=== PATIENT | male | born 1970 | race Hispanic/Latino ===

== ENCOUNTER 2017-09-18 10:15 | Outpatient (CLI) | payer MEDICARE ==
--- NOTE | 2017-09-19 07:52 | Nuclear Medicine Report ---
BONE SCAN: History: Malignant neoplasm of right testes. Technique: Anterior and posterior whole-body imaging was performed 3 hours after injection of 25 mCi of technetium 99m MDP. Comparison: No previous bone scan. Correlation is made with a CT chest abdomen and pelvis performed 08/20/17. After injection of isotope, gamma camera imaging of the bony system was done. There is a normal uptake of isotope throughout the bony structures without areas of significantly increased or decreased uptake. Mild degenerative uptake in the shoulders is noted. Photopenic defect at the right hip replacement site is noted. Normal uptake in the urinary system is seen. IMPRESSION: No evidence for metastatic disease to the bones.
== END 2017-09-18 10:16 | disposition home or self-care (01) ==
LOC: NM 10:15
PROVIDERS: ATTEND Internal Medicine Hematology & Oncology
DX: C62.11 Malignant neoplasm of descended right testis (principal); Z96.641 Presence of right artificial hip joint
CPT/HCPCS: 78306; A9503

== ENCOUNTER 2018-02-02 08:50 | Outpatient (CLI) | payer MEDICARE ==
[2018-02-02 09:45] LABS: Blood Urea Nitrogen 6 mg/dL (9-20)
--- NOTE | 2018-02-02 14:28 | Cat Scan Report ---
CT CHEST WITH CONTRAST: HISTORY: Malignant neoplasm of descended right testis. COMPARISON: 08/20/17. TECHNIQUE: Helical CT in 1.25mm intervals following IV contrast. Sagittal and coronal reformatted images. FINDINGS: Thyroid gland: Normal. Tracheobronchial tree: Normal. Esophagus: Normal. Heart: Normal. Pericardium: Normal. Mediastinum: Normal. Lung Shepherd: Normal. Pleural Spaces: Normal. Musculoskeletal: Normal. Mild bilateral gynecomastia is noted, left greater than right. IMPRESSION: Unremarkable CT chest with contrast. No evidence for metastatic disease to the chest.
--- NOTE | 2018-02-02 14:31 | Cat Scan Report ---
CT ABDOMEN PELVIS WITH CONTRAST: HISTORY: Malignant neoplasm of the descended right testis. COMPARISON: 08/20/17. TECHNIQUE: Helical CT in 1.25mm intervals following IV contrast. Sagittal and coronal reconstructions. FINDINGS: Liver: Moderate diffuse fatty infiltration of the liver is unchanged. No focal liver mass, enlargement or surface nodularity. Biliary system: Normal. Pancreas: Normal. Spleen: Normal. Kidneys/ureters/bladder: Normal. Adrenal glands: Normal. Aorta: Normal. Intestines: Unremarkable given no oral contrast was administered. Appendix: Normal. Ascites: None. Adenopathy: None. Musculoskeletal: Normal. Right hip replacement is noted and intact. IMPRESSION: No evidence for metastatic disease to the abdomen or pelvis. Hepatic steatosis. No change since 08/20/17.
--- NOTE | 2018-02-03 08:05 | Nuclear Medicine Report ---
BONE SCAN: History: Malignant neoplasm of the descending and right testis. Comparison: Bone scan dated 09/18/17. CT chest abdomen and pelvis performed the same day. After injection of isotope, gamma camera imaging of the bony system was done. There is a normal uptake of isotope throughout the bony structures without areas of significantly increased or decreased uptake. Photopenic area in the right humeral head neck region is noted and secondary to right hip replacement. Normal uptake in the urinary system is seen. There is moderate urinary contamination in the perineum. IMPRESSION: Negative bone scan.
== END 2018-02-02 08:51 | disposition home or self-care (01) ==
LOC: NM 08:50
PROVIDERS: ATTEND Internal Medicine Hematology & Oncology
DX: C62.11 Malignant neoplasm of descended right testis (principal); K76.0 Fatty (change of) liver, not elsewhere classified; N62 Hypertrophy of breast; Z96.641 Presence of right artificial hip joint
CPT/HCPCS: 36415; 71260; 74177; 78306; 82565; 84520; A9503; Q9967

== ENCOUNTER 2018-04-16 10:00 | Inpatient (IN) | payer MEDICARE ==
[2018-04-16 10:40] LABS: Basophils # (Auto) 0.1 K/mm3 (0.0-0.1); Basophils % (Auto) 0.9 % (0.0-1.8); Eosinophils # (Auto) 0.1 K/mm3 (0.0-0.4); Eosinophils % (Auto) 0.7 % (0.0-4.3); Lymphocytes # (Auto) 1.6 K/mm3 (1.2-5.4); Lymphocytes % (Auto) 17.5 % (13.4-35.0); Mean Corpuscular HGB Conc 35 % (32-34); Mean Corpuscular Hemoglobin 36 pg (28-32); Mean Corpuscular Volume 102 fl (84-94); Monocytes % (Auto) 11.7 % (0.0-7.3); Platelet Count 186 K/mm3 (140-440); Red Cell Distribution Width 14.1 % (13.2-15.2)
[2018-04-16 10:52] LABS: INR 0.93 (0.87-1.13)
[2018-04-16 10:53] LABS: Partial Thromboplastin Time 23.8 Sec. (24.2-36.6)
[2018-04-16 10:57] LABS: Alanine Aminotransferase 63 units/L (7-56); BUN/Creatinine Ratio 11; Blood Urea Nitrogen 10 mg/dL (9-20); Calcium 9.1 mg/dL (8.4-10.2); Hemolysis Index 19
--- NOTE | 2018-04-16 12:57 | Anesthesia Consultation ---
Anesthesia Consult and Med Hx Date of service: 04/16/18 - Airway Anesthetic Teeth Evaluation: Good ROM Head & Neck: Adequate Mental/Hyoid Distance: Adequate - Pulmonary Exam CTA: Yes - Cardiac Exam Cardiac Exam: RRR - Pre-Operative Health Status ASA Pre-Surgery Classification: ASA2 Proposed Anesthetic Plan: General - Pulmonary Hx Smoking: Yes (SMOKLESS TOBACCO (DIPS)) Hx Sleep Apnea: No (DEANDRE PRE SCREEN LOW RISK) - Cardiovascular System Hx Hypertension: No - Central Nervous System Hx Back Pain: Yes (NECK AND BACK PAIN) - Hematic Hx Anemia: Yes - Other Systems Hx Cancer: Yes (MULTIPLE ROUNDS OF RADIATION FOR RECURRENT CA)
[2018-04-23] MEDS ORDERED: NEURONTIN PO NR (06:00)
[2018-04-23] MEDS ORDERED: VERSED IV NR (06:00)
[2018-04-23] MEDS ORDERED: REGLAN IV NR (06:00)
[2018-04-23] MEDS ORDERED: PEPCID IV NR (06:00)
[2018-04-23] MEDS ORDERED: NACL BACTERIOSTATIC INFILTRATI ONE (06:41)
[2018-04-23] MEDS ORDERED: XYLOCAINE MPF 2% ONE (06:46)
[2018-04-23] MEDS ORDERED: DECADRON ONE ×2 (06:46→07:22)
[2018-04-23] MEDS ORDERED: DIPRIVAN 10 MG/ML IV ONE (06:46)
[2018-04-23] MEDS ORDERED: DILAUDID ONE (06:49)
[2018-04-23] MEDS ORDERED: ZEMURON IV ONE (06:49)
[2018-04-23] MEDS ORDERED: ZOFRAN ONE (06:50)
[2018-04-23] MEDS: LACTATED RINGERS 1,000 ML IV SCH (07:10)
[2018-04-23] MEDS ORDERED: SUBLIMAZE ONE (07:18)
--- NOTE | 2018-04-23 08:03 | Anesthesia Day of Surgery ---
Anesthesia Day of Surgery - Day of Surgery Patient Examined: Yes Patient H&P Reviewed: Yes Patient is NPO: Yes
[2018-04-23] MEDS ORDERED: NACL 0.9% 1000 ML 1,000 ML ONE (08:53)
[2018-04-23] MEDS ORDERED: NEO SYNEPHRINE ONE (08:58)
[2018-04-23] MEDS ORDERED: DILAUDID IV PRN ×2 (09:00→20:17)
[2018-04-23] MEDS ORDERED: ANCEF/STERILE WATER 2 GM/20 ML IV NR (09:00)
[2018-04-23] MEDS ORDERED: NACL 0.9% 100 ML ONE (10:25)
[2018-04-23] MEDS ORDERED: TRANEXAMIC ACID ONE (10:25)
[2018-04-23] MEDS ORDERED: TRANEXAMIC ACID IV ONE (10:54)
[2018-04-23] MEDS ORDERED: MORPHINE IV PRN (13:19)
[2018-04-23] MEDS ORDERED: SODIUM CHLORIDE FLUSH SYRINGE 10 ML IV SCH (14:00)
[2018-04-23] MEDS ORDERED: LACTATED RINGERS 1,000 ML IV SCH (14:00)
--- NOTE | 2018-04-23 14:32 | Post Anesthesia Evaluation ---
- Post Anesthesia Evaluation Patient Participated: Yes Airway Patent: Yes Stable Respiratory Function: Yes Nausea/Vomiting: No Temp > 96.8F: Yes Pain Manageable: Yes Adequeate Hydration: Yes Anesthesia Complications: No Block Receding Appropriately: No Patient on Ventilator: No
[2018-04-23] MEDS: ANCEF/NS 1 GM/50 ML 1 GM/50 ML BAG IV SCH (16:39)
[2018-04-23] MEDS: DILAUDID IV PRN ×2 (18:29→20:59)
--- NOTE | 2018-04-23 19:25 | Procedure Note ---
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 A timeout procedure was done to identify the patient and the correct operative site. Using a deltopectoral incision starting at the the inferior border of the clavicle this was then taken down over the coracoid process and the proximal aspect of the shoulder incision was then taken down through skin subcutaneous care was taken to identify the cephalic vein this was identified and was retracted and a medial direction next using the coracoid process as our landmark the conjoined tendon was identified the deltoid muscle was retracted and a lateral direction to expose more of the humeral head and osteotomy was performed on the coracoid process and the conjoined tendon was then released and placed in the medial position with the arm and maximum external rotation an incision was made onto the subscapularis tendon this tendon was tagged for later repair. The humeral head was then shifted laterally to expose the articular surface the patient was noted to have a large area of flattening and arthritic changes noted along the articular surface. A 4 mm start her reamer was used to enter the medullary canal this was followed by sequential remaining up to a 11 mm diameter The intramedullary resection guide was applied with the version james oriented and lined with the forearm using a oscillating saw the humeral head was resected and the femoral stem was inserted. The proximal humerus was retracted although the operative field exposing the glenoid surface patient was noted to have mild to moderate changes the labrum was debrided and the patient guide was placed over the glenoid a medium size or was chosen A3.2 threaded Steinmann. Was placed through the size or and into the glenoid this was followed by reaming the articular surface preparing the central post as well as the peripheral pegs. Using bone cement the peripheral thank holes were clogged with cement in the central without the glenoid component was then inserted and was held in place until the cement hardened. Attention was then turned to the humeral head component measuring the bone resected from the humeral articular surface a 42 x 18 head was selected and was placed on to the humeral stem Layo trial and was reduced and was taken through a range of motion and was found to be stable there was no impingement or stuffing of the glenohumeral jointLeah will O next the trial head was removed and the final component inserted and locked into position again the shoulder was reduced taken through a range of motion and was found to be stable next the wall scope was irrigated the subscapularis tendon was repaired using #2 fiber wire this was followed by reattachment of the coracoid process with a 3.5 cortical screw this was then followed by closure of the deltoid fascia subcutaneous and skin routine postoperative dressings were applied. The patient was extubated and was taken to postanesthesia recovery Surgeon: SHAKEEL ARIAS Veterinary Technologist: ALOK BERG Estimated blood loss: 50-100ml Pathology: none Condition: stable Disposition: PACU
[2018-04-23] MEDS ORDERED: PERCOCET 5/325 PO PRN (20:21)
[2018-04-24] MEDS: ANCEF/NS 1 GM/50 ML 1 GM/50 ML BAG IV SCH (01:35)
[2018-04-24] MEDS: DILAUDID IV PRN ×3 (01:35→10:40)
[2018-04-24] MEDS: LACTATED RINGERS 1,000 ML IV SCH (05:06)
--- NOTE | 2018-04-24 14:59 | Progress Note ---
Assessment and Plan Status post left total shoulder replacement doing well we'll discharge to home today with a follow-up appointment in the office in 10 days Subjective Date of service: 04/24/18 Interval history: Doing well no complaints noted Objective Vital signs: Vital Signs - 12hr 04/24/18 04/24/18 04/24/18 04:34 05:57 06:27 Temperature 98.0 F Pulse Rate 81 Respiratory 20 17 17 Rate Blood Pressure 127/74 O2 Sat by Pulse 93 Oximetry Narrative Exam: As the left shoulder. Dressings were changed and inspected no drainage per se no redness or erythema noted - Labs CBC & BMP: 04/16/18 10:10 04/16/18 10:10
[2018-04-24 15:04] VITALS: BP 133/80
== END 2018-04-24 14:40 | disposition home or self-care (01) | DRG 483 ==
LOC: 3A 04-23 06:03 → 3B-SURG 04-23 12:31
PROVIDERS: ADMIT Orthopaedic Surgery; ATTEND Orthopaedic Surgery
PROC: 0RRK0JZ Replacement of Left Shoulder Joint with Synthetic Substitute, Open Approach (ICD-10-PCS; principal; 2018-04-23)
DX: M19.012 Primary osteoarthritis, left shoulder (principal); M87.822 Other osteonecrosis, left humerus; K21.9 Gastro-esophageal reflux disease without esophagitis; Z96.641 Presence of right artificial hip joint; Z96.651 Presence of right artificial knee joint; Z96.611 Presence of right artificial shoulder joint; C62.90 Malignant neoplasm of unspecified testis, unspecified whether descended or undescended; Z91.040 Latex allergy status; Z92.3 Personal history of irradiation
CPT/HCPCS: 36415; 80053; 85025; 85610; 85730; 86850; 86900; 86901; 88304; 88305; 88311; C1713; C1776; G8987-GO; G8988-GO; J0690; J1100; J1170; J2250; J2270; J2370; J2405; J2704; J2765; J3010; J7030; J7120

== ENCOUNTER 2018-06-25 06:52 | Outpatient (CLI) | payer MEDICARE ==
--- NOTE | 2018-06-25 09:37 | Cat Scan Report ---
CT UPPER EXTREMITY LEFT WITHOUT CONTRAST History: Pain in left shoulder. Technique: Helical CT with sagittal and coronal reformatted images. Findings: Anterior dislocation is identified at the left shoulder arthroplasty. The glenoid and humeral portions of the arthroplasty remain in position. A comminuted fracture of the coracoid process is identified. No other fracture is detected. No bone lesion. There are moderate heterotopic calcifications in the anterior soft tissues. A metallic screw is also identified in the anterior soft tissues which is presumably displaced. Impression: Anterior dislocation of the left shoulder arthroplasty. Comminuted fracture of the coracoid process. Metallic screw in the anterior soft tissues which is presumably displaced from its original position.
== END 2018-06-25 06:53 | disposition home or self-care (01) ==
LOC: CT 06:52
PROVIDERS: ATTEND Orthopaedic Surgery
DX: S43.085A Other dislocation of left shoulder joint, initial encounter (principal); S42.132A Displaced fracture of coracoid process, left shoulder, initial encounter for closed fracture; M79.89 Other specified soft tissue disorders; K21.9 Gastro-esophageal reflux disease without esophagitis; Z87.891 Personal history of nicotine dependence; X58.XXXA Exposure to other specified factors, initial encounter; Y93.89 Activity, other specified; Y92.89 Other specified places as the place of occurrence of the external cause; Y99.8 Other external cause status

== ENCOUNTER 2018-07-16 13:16 | Outpatient (CLI) | payer MEDICARE, MEDICAID ==
--- NOTE | 2018-07-20 09:02 | PET Report ---
PET/CT:07/16/18 13:16:00 CLINICAL: Testicular cancer restaging. RADIOPHARMACEUTICAL: 12.896mCi F18-FDG. COMPARISON: CT CAP 02/02/18 and 02/01/11 PET/CT TECHNIQUE- Following intravenous injection of F-18 FDG and an approximately 60 minute uptake period, CT and PET images from the mid skull to the upper thighs were acquired with the patient in the fasted state. No contrast was administered. The CT protocol used for this PET CT study is designed for attenuation correction and anatomic localization of PET abnormalities. This magneto electrician CT is not desired to produce and cannot replace, iofye-qi-shp-art diagnostic CT scans with specific imaging protocols for different body parts and indications. Plasma glucose at the time of this test: 112g/dl. The standardized uptake values (SUV) are normalized to patient body weight and indicate the highest activity concentration (SUV max) in a given disease site. FINDINGS: Brain--Physiologic FDG uptake in the visualized regions of the brain. Neck--Physiologic FDG uptake in mucosal structures and moderate benign FDG uptake in brown fat of the neck and upper chest.. Chest--Physiologic FDG uptake in mediastinal blood pool and myocardium. Lungs--No abnormal uptake. No pulmonary nodule or mass. Pleura/pericardium--No abnormal uptake. Thoracic nodes--No abnormal uptake. Hepatobiliary--No abnormal uptake. Liver background SUV mean, as a reference for comparing FDG studies, is 3.0 compared to 3.4 on the last exam. No liver mass. Spleen--No abnormal uptake. Pancreas--No abnormal uptake. Adrenal Glands--No abnormal uptake. Kidneys/Ureters/Bladder--No abnormal uptake. Abdominopelvic Nodes--No abnormal uptake. Bowel/Peritoneum/Mesentery--No abnormal uptake. Pelvic organs--No abnormal uptake. Bones/Soft Tissues--No abnormal uptake and no suspicious bone lesions. IMPRESSION- Negative study.No evidence of disease recurrence or metastasis.
== END 2018-07-16 13:17 | disposition home or self-care (01) ==
LOC: PET 13:16
PROVIDERS: ATTEND Internal Medicine Hematology & Oncology
DX: C62.11 Malignant neoplasm of descended right testis (principal); K21.9 Gastro-esophageal reflux disease without esophagitis; Z87.891 Personal history of nicotine dependence
CPT/HCPCS: 78815; 82962; A9552